=== PATIENT | male | born 1955 | race Caucasian/White ===

== ENCOUNTER 2016-07-24 13:02 | Emergency (ER) | payer OTHER | END 2016-07-24 13:55 | disposition home or self-care (01) | LOC: ER 13:02 | DX: S39.92XA Unspecified injury of lower back, initial encounter (principal); S79.912A Unspecified injury of left hip, initial encounter; I10 Essential (primary) hypertension; I25.2 Old myocardial infarction; Z86.73 Personal history of transient ischemic attack (TIA), and cerebral infarction without residual deficits; E11.9 Type 2 diabetes mellitus without complications; Z87.891 Personal history of nicotine dependence; V89.9XXA Person injured in unspecified vehicle accident, initial encounter | CPT/HCPCS: 72100; 73502-LT; 99283 ==

== ENCOUNTER 2016-08-24 14:48 | Emergency (ER) | payer OTHER | END 2016-08-24 17:24 | disposition home or self-care (01) | LOC: ER 14:48 | DX: M25.552 Pain in left hip (principal); M54.5 Low back pain; I10 Essential (primary) hypertension; F32.9 Major depressive disorder, single episode, unspecified; F17.200 Nicotine dependence, unspecified, uncomplicated; V87.8XXA Person injured in other specified noncollision transport accidents involving motor vehicle (traffic), initial encounter | CPT/HCPCS: 72100; 73502-LT; 96372; 99283; J1885 ==

== ENCOUNTER 2017-02-06 10:39 | Emergency (ER) | payer OTHER | END 2017-02-06 11:20 | disposition home or self-care (01) | LOC: ER 10:39 | DX: G89.29 Other chronic pain (principal); M79.604 Pain in right leg; M79.605 Pain in left leg; I10 Essential (primary) hypertension; F31.9 Bipolar disorder, unspecified | CPT/HCPCS: 99284 ==